=== PATIENT | female | born 1950 | race Caucasian/White ===

== ENCOUNTER → 2018-03-02 | Outpatient (CLI) | payer OTHER ==
[~2018-03-02] VITALS: Ht 162.6 cm; Wt 87.1 kg
[~2018-03-02] MED LIST: AMITRIPTYLINE H50 M2 PO; CEFDINIR300 MG PO; CELEBREX 200 M200 MG PO; ENOXAPARIN30 MG/0.3 SUBQ; ERGOCALCIF50000 UNIT PO; IRON325 PO; MIRALAX255 GM PO; MUCINEX600 MG PO; NASONEX17 GM SPRAY; NEXIUM 40 MG CA40 M1 PO; OXYCONTIN20 M1 PO; PERCOCET 5-3251 EACH PO; TOPROL XL25 MG PO; VERAMYST10 GM INH; VITAMIN D PO; ZESTORETIC 20-1 EAC3 PO; ZYRTEC10 M2 PO
--- NOTE | ~2018-03-02 | HPC ---
[address] [address] PAIN MANAGEMENT CONSULTATION Name: NATE INIGUEZ Room #: REG [facility].#: [id number] Admission: 03/02/18 Attend Phys: Ion Cox DO Discharge: Date of : 50 Report #: [id number] THIS REPORT FOR: //name// CC: Wyatt Maher MD DATE OF SERVICE: 03/02/2018 REFERRING PHYSICIAN: Jd Mhaer MD CHIEF COMPLAINT: Low back pain, left lower extremity pain with paresthesias. HISTORY OF PRESENT ILLNESS: As you know, the patient is a 68-year-old female who reports longstanding history of low back pain with left lower extremity pain and paresthesias. The patient states the pain began in 05/2017. She denies any specific injury or trauma that may have led to symptom occurrence. She sought evaluation through her primary care physician, Dr. Jd Maher, who had the patient trial conservative medication therapy. She underwent MRI imaging on 01/26/2018, which showed moderate endplate spurring at L3-L4, anterolisthesis of L4 on L5 with facet hypertrophy. A followup MRI imaging was done on 02/23/2018, which shows broad-based disk herniation extrusion at the L4-L5 level with leftward positioning of the disk protrusion with abutment of the descending left L5 nerve root. Due to these findings, the patient was subsequently referred to our service, discussed epidural injections under fluoroscopic guidance. The patient indicates today her pain is continuous and steady, describes the pain as aching, throbbing, sharp, intermittently numbness and tingling. She places current pain score at 7/10, daily average at 8/10, the worst pain has been is 8/10. The patient states that standing, lying on her back, sitting for any length of time and lifting exacerbates symptoms, sitting in a reclining chair tends to improve pain. She has been referred to our service to discuss treatment options for suspected lumbar radiculopathy. PAST MEDICAL HISTORY: 1. Anemia. 2. Hypertension. 3. Degenerative joint disease. 4. Osteoarthritis. 5. Tobaccoism. 6. GERD. PAST SURGICAL HISTORY: Total knee arthroplasty. SOCIAL HISTORY: The patient denies tobacco, alcohol, IV or illicit drug use. She is retired, retiring years ago. She is unaccompanied at today's visit. She [facility] [address] [place] [address] PAIN MANAGEMENT CONSULTATION Name: NATE INIGUEZ Room #: REG [facility] Lo#: [id number] Admission: 03/02/18 Attend Phys: Ion Cox DO Discharge: Date of : 50 Report #: [id number] is not in litigation in regards to her pain. REVIEW OF SYSTEMS: Positive for decrease in appetite, fatigue and weakness, frequent and recurrent headaches, wearing corrective eyewear, chronic sinus problems with rhinitis, palpitations, loss of appetite, nocturia, low back pain, left lower extremity pain and paresthesias. All other review of systems negative per 12-point review of systems other than those listed in the history of present illness. Pain impact score 38/70, indicating moderate interference of daily activities secondary to pain. ALLERGIES: ERYTHROMYCIN. CURRENT MEDICATIONS: Drisdol 50,000 units once a week, MiraLax 17 grams per day, metoprolol 25 mg 3 tabs p.o. at bedtime, lisinopril/hydrochlorothiazide 20/12.5 mg once a day, celecoxib 200 mg twice a day, amitriptyline 50 mg 2 tabs p.o. at bedtime, omeprazole 40 mg per day, OxyContin 20 mg 3 times a day, Zyrtec 10 mg once a day. IMAGING: MRI lumbar spine obtained 02/23/2018 shows broad-based disk herniation/extrusion present on the left at the L4-L5 level resulting in abutment of the descending left L5 nerve root as well as moderate left neural foraminal stenosis without definitive L4 nerve root impingement, mild central canal stenosis L2-L3, degenerative changes noted at multiple levels. There is a grade 1 anterolisthesis of L4 on L5. No significant central canal stenosis at that level. PQRS: The patient has a history of osteoarthritis and rheumatoid arthritis involving bilateral upper and lower extremities. She places pain intensity at 7/10. She is a fall risk, but has not had a fall in the last 3 months. She is not on blood thinners. She is treated for hypertension. She has been on opioids for an extended period of time. Functional assessment pain impact tool indicates 38/70, moderate. PHYSICAL EXAMINATION: VITAL SIGNS: Blood pressure 148/75, pulse 72, respiratory rate 16 and unlabored. The patient is 100% on room air. Height 5 feet 4 inches tall, weight 182 pounds, BMI calculated at 32.9. GENERAL: Well-developed, well-nourished, well-hydrated 68-year-old female, appears her stated age, placing current pain score at around 7/10. HEENT: Normocephalic, atraumatic. Pupils equal, round, reactive to light. Extraocular muscles are intact. Sclerae nonicteric without injection. NEUROLOGIC: Cranial nerves 2-12 grossly intact. Speech is fluent. The patient deemed a fair historian. LUNGS: Clear. No wheezes, rhonchi or rales. [address] [place] [address] PAIN MANAGEMENT CONSULTATION Name: NATE INIGUEZ [id number] Admission: 03/02/18 Attend Phys: Ion Cox DO Discharge: Date of : 50 Report #: [id number] CARDIOVASCULAR: Regular. No appreciable gallop, no rub. ABDOMEN: Soft, nontender, nondistended, normoactive bowel sounds. EXTREMITIES: Show no clubbing, no cyanosis, no edema. MUSCULOSKELETAL: Lower extremity strength appears equal and symmetrical 5/5. She is intact to light touch from L1 through S2 dermatomes. Seated straight leg raising negative. Supine straight leg raising positive on the left. Marci's test negative. Gait mildly antalgic favoring left lower extremity over right. Ankle clonus negative. Babinski is negative. Muscle bulk and tone equal and symmetrical in lower extremities. Lumbar provocation testing is met with increasing pain. There is palpatory tenderness over the paraspinal musculature of lower lumbar spine, no spinous process tenderness. ASSESSMENT: 1. Lumbar radiculopathy. 2. Displacement of lumbar intervertebral disk with radiculopathy. 3. Spinal stenosis of lumbar spine. 4. Lumbosacral spondylosis with radiculopathy. 5. Spondylolisthesis of L4 on L5. 6. Lumbar degeneration. 7. Chronic intractable pain. PLAN: 1. The patient has been referred to our service by her primary care physician, Dr. Jd Maher for evaluation for suspected lumbar radiculopathy. The patient's physical exam do correlate with findings noted at the L4-L5 level with L5 left radicular symptoms in a dermatomal pattern of distribution. The patient and I discussed today treatment options available for lumbar radiculopathy. The following was discussed with the patient for potential treatment options. We discussed physical therapy, stretching exercises and core strengthening, the most conservative treatment option available. We discussed medication additions with suggestions of starting either gabapentin or escalating the amitriptyline dosing to cover neuropathic pain. We discussed the requested epidural injection. We discussed spinal cord stimulator therapy and surgical options. After reviewing risks and benefits of all proposed treatment options, the patient chose to move forward with an epidural injection. 2. The patient was advised risks and benefits of a lumbar epidural injection. These risks include but are not necessarily limited to bleeding, bruising, infection, worsening pain, no relief of pain, also risk of temporary or permanent muscle weakness, temporary or permanent nerve damage, possible paralysis and . The patient states understood and wished to proceed. 3. No medication changes made at today's visit. The patient will continue current medical therapy as previously prescribed. 4. We will see the patient back in followup visit in approximately 3 weeks. At that time, review the efficacy of today's epidural injection and determine if next in the series might be warranted. [address] [address] PAIN MANAGEMENT CONSULTATION Name: INIGUEZNATE KAYE Room #: REG [facility] Lo#: [id number] Admission: 03/02/18 Attend Phys: Ion Cox DO Discharge: Date of : 50 Report #: [id number] 5. We wish to thank Dr. Maher for the referral of this patient to our clinic. We will keep you apprised of her response to treatment as we address her lumbar radicular symptoms. Again, we wish to thank you for the opportunity to see her in consultation. PROCEDURE NOTE DESCRIPTION OF PROCEDURE: L5-S1 left paramedian epidural steroid injection under fluoroscopic guidance. This is the first procedure of the first series that the patient is undergoing. After obtaining written consent, the patient was taken back to the fluoroscopy suite, placed in a prone position with pillow under the abdomen to decrease lumbar lordosis. The skin overlying the lumbosacral area was then prepped and draped in aseptic fashion. The L5-S1 vertebral interspace was then identified by AP fluoroscopy. The skin and subcutaneous tissue overlying the target site of injection was anesthetized with 3 mL 1% lidocaine. A(n) 20-gauge 3-1/2 inch Tuohy needle was then advanced under fluoroscopic guidance towards the epidural space using a left paramedian approach. The epidural space was identified using loss of resistance to air technique. After negative aspiration for heme or cerebrospinal fluid, a total of 1 mL of Omnipaque was injected. A lumbar epidurogram was confirmed using both AP and lateral fluoroscopy. After negative aspiration for heme or cerebrospinal fluid, 5 mL of a solution containing 2 mL 40 mg per mL, 80 mg total triamcinolone, 3 mL lidocaine 1% was injected in increments. Contrast spread was noted in the posterior epidural space. The needle was then retracted approximately half way and needle tract flushed with 1 mL of 1% lidocaine. Needle was then removed. There were no apparent sensory or motor deficits in the lower extremity following the procedure. A sterile bandage was placed over the injection site. The heart rate, pulse, oximetry and blood pressure were continuously monitored after the procedure. There were no apparent complications. The patient tolerated the procedure well and was carefully escorted to the recovery room in stable condition. There were no apparent complications. After meeting discharge criteria, the patient was then discharged home. <ELECTRONICALLY SIGNED> By: Ion Cox DO 03/03/18 [id number] Ion oCx DO /juan
[2018-03-02 08:35] VITALS: BP 148/75
== END | disposition home or self-care (01) ==
LOC: PAIN 06:50
DX: M51.16 Intervertebral disc disorders with radiculopathy, lumbar region (principal); M48.061 Spinal stenosis, lumbar region without neurogenic claudication; M47.27 Other spondylosis with radiculopathy, lumbosacral region; M43.16 Spondylolisthesis, lumbar region; G89.29 Other chronic pain; D64.9 Anemia, unspecified; I10 Essential (primary) hypertension; M19.90 Unspecified osteoarthritis, unspecified site; K21.9 Gastro-esophageal reflux disease without esophagitis; F17.200 Nicotine dependence, unspecified, uncomplicated; M99.73 Connective tissue and disc stenosis of intervertebral foramina of lumbar region; M06.9 Rheumatoid arthritis, unspecified; Z98.890 Other specified postprocedural states; Z96.652 Presence of left artificial knee joint; Z88.8 Allergy status to other drugs, medicaments and biological substances; Z79.899 Other long term (current) drug therapy; Z79.891 Long term (current) use of opiate analgesic; Z68.32 Body mass index [BMI] 32.0-32.9, adult

== ENCOUNTER → 2018-03-31 | Outpatient (CLI) | payer OTHER ==
[~2018-03-31] VITALS: Ht 162.6 cm; Wt 88.2 kg
--- NOTE | ~2018-03-31 | HPC ---
[place] [address] PAIN MANAGEMENT CONSULTATION Name: NATE INIGUEZ Room #: REG [facility] Maria Fernanda.#: [id number] Admission: 03/31/18 Attend Phys: Ion Cox DO Discharge: Date of : 50 Report #: [id number] THIS REPORT FOR: //name// CC: Wyatt Maher MD DATE OF SERVICE: 03/31/2018 CHIEF COMPLAINT: Low back pain, left lower extremity pain and paresthesias. HISTORY OF PRESENT ILLNESS: As you know, the patient is a 68-year-old female reporting longstanding history of low back pain, left lower extremity pain with paresthesias. The patient states the pain began 05/2017. She was seen in consultation per the request of Dr. Jd Maher, 03/02/2018, diagnosed with lumbar radiculopathy secondary to multifactorial spinal stenosis. We discussed at that visit, the treatment options available for lumbar radiculopathy secondary to central canal stenosis of the lumbar spine. We discussed medication management, physical therapy, epidural injections, and surgical options. After reviewing the risks and benefits of all the proposed treatment options, the patient chose to undergo a lumbar epidural injection under fluoroscopic guidance. She returns today in followup visit indicating a pain level of no greater than 7/10. She reports that she gained 80% improvement in overall pain with the initial epidural injection despite this elevated pain report today. She returns to undergo next in the series of epidural injections. She states her pain is exacerbated with standing, lying down, sitting, lifting, worse as the day wears on, alleviated with recliner, wedge pillow and recent epidural injection. She returns for the second in series of epidural injections in hopes of improving pain further. ALLERGIES: ERYTHROMYCIN. CURRENT MEDICATIONS: Drisdol once a week, MiraLax 17 grams per day, metoprolol 25 mg 3 tabs p.o. q.a.m., lisinopril/hydrochlorothiazide 20/12.5 one tab per day, celecoxib 200 mg twice a day, amitriptyline 50 mg p.o. at bedtime, omeprazole 40 mg per day, OxyContin 20 mg b.i.d., Zyrtec 10 mg once a day. SOCIAL HISTORY: The patient denies tobacco, alcohol, IV or illicit drug use. She is retired, retired years ago. She is unaccompanied today. IMAGING: No new imaging available. PQRS: The patient has known osteoarthritis of the low back, bilateral hips, bilateral knees. She also has a history of rheumatoid arthritis involving both upper and lower extremities. Pain intensity today is 7/10. She is not a fall risk, has not had a fall in the last 3 months. She [place] [address] PAIN MANAGEMENT CONSULTATION Name: NATE INIGUEZ Room #: REG CL Teresita#: [id number] Admission: 03/31/18 Attend Phys: Ion Cox DO Discharge: Date of : 50 Report #: [id number] She is treated for hypertension. She has been on opioids for an extended period of time. Functional assessment pain impact stool indicates pain level somewhere up to 38/70, moderate interference of daily activities secondary to pain. PHYSICAL EXAMINATION: VITAL SIGNS: Blood pressure 134/64, pulse 82, respiratory rate 16 and unlabored. The patient is 100% on room air. Height 5 feet 4 inches tall, weight 194.4 pounds, BMI calculated 33.4. GENERAL: Well-developed, well-nourished, well-hydrated 68-year-old female, appearing stated age, placing current pain score 7/10. HEENT: Normocephalic, atraumatic. Pupils equal, round, reactive to light. EXTREMITIES: Show no clubbing, no cyanosis, no edema. MUSCULOSKELETAL: Lower extremity strength symmetrical 5/5, intact to light touch from L1 through S2 dermatomes. Seated straight leg raising negative. Supine straight leg raising positive, left. Marci's test negative. Gait remains antalgic favoring left lower extremity over right. The patient is using a cane for ambulation. ASSESSMENT: 1. Lumbar radiculopathy. 2. Displacement of lumbar intervertebral disk with radiculopathy. 3. Central canal stenosis of the lumbar spine. 4. Lumbosacral spondylosis with radiculopathy. 5. Spondylosis of L4 and L5. 6. Lumbar degeneration. 7. Chronic intractable pain. PLAN: 1. The patient returns today in followup visit requesting to undergo next in the series of epidural injections. She reports 80% improvement in overall pain with previous epidural injection, returning today, denying any new injury, new trauma or any changes in medical history that would preclude us from undergoing the procedure. She has been advised risks and benefits, states understood and wished to proceed. 2. No medication changes were made at today's visit. The patient will continue current medical therapy as previously prescribed. 3. We will see the patient back in followup visit for next in the series of epidural injections. We made her a tentative appointment in 2 months. PROCEDURE NOTE DESCRIPTION OF PROCEDURE: L5-S1 left paramedian epidural steroid injection under fluoroscopic guidance. This is the 2 procedure of the first series that the patient is undergoing. [address] [address] PAIN MANAGEMENT CONSULTATION Name: NATE INIGUEZ Room #: REG [facility]#: [id number] Admission: 03/31/18 Attend Phys: Ion Cox DO Discharge: Date of : 50 Report #: [id number] After obtaining written consent, the patient was taken back to the fluoroscopy suite, placed in a prone position with pillow under the abdomen to decrease lumbar lordosis. The skin overlying the lumbosacral area was then prepped and draped in aseptic fashion. The L5-S1 vertebral interspace was then identified by AP fluoroscopy. The skin and subcutaneous tissue overlying the target site of injection was anesthetized with 3 mL 1% lidocaine. A 20-gauge 3-1/2 inch Tuohy needle was then advanced under fluoroscopic guidance towards the epidural space using a left paramedian approach. The epidural space was identified using loss of resistance to air technique. After negative aspiration for heme or cerebrospinal fluid, a total of 1 mL of Omnipaque was injected. A lumbar epidurogram was confirmed using both AP and lateral fluoroscopy. After negative aspiration for heme or cerebrospinal fluid, 5 mL of solution of containing 2 mL 40 mg per mL 80 mg total triamcinolone, 3 mL lidocaine 1% was injected in increments. Contrast spread was noted posterior epidural space. The needle was then retracted approximately half way and needle tract flushed with 1 mL of 1% lidocaine. Needle was then removed. There were no apparent sensory or motor deficits in the lower extremity following the procedure. A sterile bandage was placed over the injection site. The heart rate, pulse, oximetry and blood pressure were continuously monitored after the procedure. There were no apparent complications. The patient tolerated the procedure well and was carefully escorted to the recovery room in stable condition. There were no apparent complications. After meeting discharge criteria, the patient was then discharged home. <ELECTRONICALLY SIGNED> By: Ion Cox DO 04/02/18 0753 [id number] 1835 Ion Cox DO /nt
[2018-03-31 09:00] VITALS: BP 134/64
== END | disposition home or self-care (01) ==
LOC: PAIN 06:42
DX: M51.16 Intervertebral disc disorders with radiculopathy, lumbar region (principal); M48.061 Spinal stenosis, lumbar region without neurogenic claudication; M47.27 Other spondylosis with radiculopathy, lumbosacral region; M47.26 Other spondylosis with radiculopathy, lumbar region; G89.29 Other chronic pain; I10 Essential (primary) hypertension; M19.90 Unspecified osteoarthritis, unspecified site; Z88.0 Allergy status to penicillin; Z79.899 Other long term (current) drug therapy; Z87.891 Personal history of nicotine dependence; Z98.890 Other specified postprocedural states

== ENCOUNTER → 2018-07-14 | Outpatient (CLI) | payer OTHER ==
[~2018-07-14] VITALS: Ht 165.1 cm; Wt 88.2 kg
[2018-07-14 09:02] VITALS: BP 127/70
--- NOTE | 2018-07-14 09:30 | NUR ---
Pain Clinic Assessment: 1. History of Osteoarthritis: Left Lower Extremity Right Lower Extremity History of Rheumatoid Arthritis: Left Lower Extremity Right Lower Extremity Left Upper Extremity Right Upper Extremity 2. Height: 5 ft. 5 in. 165.1 cm. Weight: 194.4 lb. oz. 88.179 kg. Patient's BMI: 32.3 3. Vital Signs: BP: 127/70 Pulse: 73 Resp: 18 Temp: 02 Sat: 100 ECG Mon: 4. Pain Intensity: 6 NECK BACK 10 5. Fall Risk: Dizziness: N Needs help standing or walking: Y Fallen in the last 3 months: N Fall risk comments: 6. Patient on Blood Thinner: None 7. History of Hypertension: Y 8. Opioid Therapy greater than 6 weeks: Y Opiate Contract Signed: 9. Risk Assessment Tool Provided: DR GILLIS 10. Functional Assessment Tool: 11. Recreational Drug Use: Never Drug Type: Tobacco Use: Former Smoker Tobacco Type: Amount or Packs/day: How Many Years: Alcohol Use: Past use Frequency: Quant:
--- NOTE | 2018-07-27 07:31 | HPC ---
[facility] [address] [place] [address] PAIN MANAGEMENT CONSULTATION Name: NATE INIGUEZ Room #: REG [facility] M..#: [id number] Admission: 07/14/18 ������������������ Attend Phys: Ion Cox DO Discharge: ������������������ Date of : 50 Report #: [id number] THIS REPORT FOR: //name// CC: Wyatt Cox ESVIN BOX DATE OF SERVICE: 07/14/2018 CHIEF COMPLAINT: Low back pain, left lower extremity pain with paresthesias. HISTORY OF PRESENT ILLNESS: As you know, the patient is a 68-year-old female returning in followup visit now reporting pain score of around 6/10. She is complaining of back pain at 10/10 and neck pain at 6/10. She has been evaluated by her PCP and referred back to our clinic for suspected cervical radiculopathy. She is also experiencing axial back pain and lower extremity pain with paresthesias, mainly on the left side. She returns to discuss options for treatment. ALLERGIES: ERYTHROMYCIN. CURRENT MEDICATIONS: Drisdol, MiraLax, metoprolol, lisinopril/hydrochlorothiazide, celecoxib, Zyrtec, oxycodone, omeprazole, amitriptyline. SOCIAL HISTORY: The patient denies tobacco, alcohol, IV or illicit drug use. She is retired, retired years ago. She is unaccompanied today. IMAGING: There is no new imaging available. PQRS, the patient has known osteoarthritic changes of the cervical spine, lumbar spine, bilateral hips and bilateral knees. She also has a history of rheumatoid arthritis involving upper and lower extremities. She is placing pain intensity today at 6/10 in the neck and 10/10 in the back. She is not a fall risk and has not had a fall in the last 3 months. She is not on any blood thinners. She is treated for hypertension. She has been on opiates for an extended period of time. She is receiving opioids from Dr. Maher's office. She is placing pain impact score at 30/70 indicating moderate interference of daily activities secondary to pain. PHYSICAL EXAMINATION: VITAL SIGNS: Blood pressure 127/70, pulse is 73, respiratory rate 18 and unlabored. The patient is 100% on room air. Height 5 feet 5 inches tall, weight 194.4 pounds, BMI calculated at 32.3. GENERAL: Well-developed, well-nourished, well-hydrated 68-year-old female, appearing stated age, placing current pain score at 6/10 in the neck and 10/10 [place] [address] PAIN MANAGEMENT CONSULTATION Name: NAET INIGUEZ Room #: REG [facility].#: [id number] Admission: 07/14/18 ������������������ Attend Phys: Ion Cox DO Discharge: ������������������ Date of : 50 Report #: [id number] in low back and left lower extremity. HEENT: Normocephalic, atraumatic. Pupils equal, round, reactive to light. Extraocular muscles are intact. Sclerae nonicteric without injection. EXTREMITIES: Show no clubbing, no cyanosis, no edema. MUSCULOSKELETAL: Upper extremity strength appears symmetrical, but deconditioned bilaterally, 5/5, intact to light touch from C5 through T1 dermatomes. Positive Phalen's sign is noted, equivocal Tinel's sign. Spurling's test is negative. Cervical provocation testing is met with increasing pain. Lower extremity strength is 5/5, intact to light touch from L1 through S2 dermatomes. Seated straight leg raising negative. Supine straight leg raising positive on the left. Gait mildly antalgic favoring left lower extremity. ASSESSMENT: 1. Cervical spondylosis without radiculopathy. 2. Chronic cervicalgia. 3. Bilateral carpal tunnel syndrome. 4. Lumbar radiculopathy. 5. Displacement of lumbar intervertebral disk with radiculopathy. 6. Lumbosacral spondylosis with radiculopathy. 7. Spondylosis of L4 on L5. 8. Central canal stenosis of the lumbar spine. 9. Lumbar degeneration. 10. Chronic intractable pain. PLAN: 1. The patient has returned today in followup visit reporting pain score in the cervical region, 6/10. Based on today's physical exam and the history she provides and the lack of any radicular symptoms involving the upper extremity except for area distal to the median nerve with involvement of classic carpal tunnel syndrome bilaterally, there is noted no cervical radiculopathy. She does have some cervical spondylosis secondary to arthritic changes in the cervical spine, which could be contributing to her neck pain, but certainly, it is not causing any radicular component based on neural tensioning testing today. The positive Phalen's sign and the equivocal Tinel's sign would indicate recurrence of carpal tunnel syndrome for which the patient should be evaluated further for possible surgical option. She has had release in the past, but this was some time ago. It is not unusual to have recurrence of these symptoms in those individuals that required releases in the distant past. I have advised the patient that if she wishes, we could have her undergo EMG of the upper extremities to further evaluate where she can follow up with her orthopedic surgeon in regards to possible repeated carpal tunnel release. 2. The patient and I discussed the 10/10 pain she is experiencing in low back and left lower extremity. She has requested today to undergo a lumbar epidural injection under fluoroscopic guidance. We have agreed to provide this injection today to address her 10/10 pain. She has been advised the risks and benefits, [facility] [address] [place] [address] PAIN MANAGEMENT CONSULTATION Name: NATE INIGUEZ Room #: REG [facility].#: [id number] Admission: 07/14/18 ������������������ Attend Phys: Ion Cox DO Discharge: ������������������ Date of : 50 Report #: [id number] states understood and wished to proceed. 3. No medication changes made at today's visit. The patient will continue current medical therapy as previously prescribed. 4. We will see the patient back in followup visit on an as needed basis for the next in the series of lumbar epidural injections under fluoroscopic guidance. PROCEDURE NOTE DESCRIPTION OF PROCEDURE: L5-S1 left paramedian epidural steroid injection under fluoroscopic guidance. This is the third procedure of the first series that the patient is undergoing. After obtaining written consent, the patient was taken back to the fluoroscopy suite, placed in a prone position with pillow under the abdomen to decrease lumbar lordosis. The skin overlying the lumbosacral area was then prepped and draped in aseptic fashion. The L5-S1 vertebral interspace was then identified by AP fluoroscopy. The skin and subcutaneous tissue overlying the target site of injection was anesthetized with 3 mL 1% lidocaine. A 20-gauge 3-1/2 inch Tuohy needle was then advanced under fluoroscopic guidance towards the epidural space using a left paramedian approach. The epidural space was identified using loss of resistance to air technique. After negative aspiration for heme or cerebrospinal fluid, a total of 0.7 mL of Omnipaque was injected. A lumbar epidurogram was confirmed using both AP and lateral fluoroscopy. After negative aspiration for heme or cerebrospinal fluid, 5 mL of a solution containing 2 mL 40 mg per mL, 80 mg total triamcinolone, 3 mL lidocaine 1% was injected in increments. Contrast spread was noted in posterior epidural space. The needle was then retracted approximately half way and needle tract flushed with 1 mL of 1% lidocaine. Needle was then removed. There were no apparent sensory or motor deficits in the lower extremity following the procedure. A sterile bandage was placed over the injection site. The heart rate, pulse, oximetry and blood pressure were continuously monitored after the procedure. There were no apparent complications. The patient tolerated the procedure well and was carefully escorted to the recovery room in stable condition. There were no apparent complications. After meeting discharge criteria, the patient was then discharged home. ��������������������������������������������� <ELECTRONICALLY SIGNED> ���������������������������������������� By: Ion Cox DO ��������������������������������������������� 07/27/18 0731 [id number] 1919 Ion Cox DO /nt
== END | disposition home or self-care (01) ==
LOC: PAIN 04-28 05:47
DX: M51.16 Intervertebral disc disorders with radiculopathy, lumbar region (principal); M47.27 Other spondylosis with radiculopathy, lumbosacral region; M48.061 Spinal stenosis, lumbar region without neurogenic claudication; G89.29 Other chronic pain; M47.26 Other spondylosis with radiculopathy, lumbar region; M47.812 Spondylosis without myelopathy or radiculopathy, cervical region; M54.2 Cervicalgia; G56.03 Carpal tunnel syndrome, bilateral upper limbs; Z87.891 Personal history of nicotine dependence; Z98.890 Other specified postprocedural states; Z88.8 Allergy status to other drugs, medicaments and biological substances; Z79.899 Other long term (current) drug therapy

== ENCOUNTER → 2018-10-13 | Outpatient (CLI) | payer OTHER ==
[~2018-10-13] VITALS: Ht 165.1 cm; Wt 87.5 kg
[2018-10-13 11:04] VITALS: BP 145/76
--- NOTE | 2018-10-13 11:10 | NUR ---
Pain Clinic Assessment: 1. History of Osteoarthritis: Left Lower Extremity Right Lower Extremity History of Rheumatoid Arthritis: Left Lower Extremity Right Lower Extremity Left Upper Extremity Right Upper Extremity 2. Height: 5 ft. 5 in. 165.1 cm. Weight: 192.8 lb. oz. 87.454 kg. Patient's BMI: 32.1 3. Vital Signs: BP: 145/76 Pulse: 84 Resp: 16 Temp: 02 Sat: 100 ECG Mon: 4. Pain Intensity: 9 5. Fall Risk: Dizziness: N Needs help standing or walking: Y Fallen in the last 3 months: Y Fall risk comments: 6. Patient on Blood Thinner: None 7. History of Hypertension: Y 8. Opioid Therapy greater than 6 weeks: Y Opiate Contract Signed: 9. Risk Assessment Tool Provided: DR GILLIS 10. Functional Assessment Tool: 11. Recreational Drug Use: Never Drug Type: Tobacco Use: Former Smoker Tobacco Type: Amount or Packs/day: How Many Years: Alcohol Use: Past use Frequency: Quant:
--- NOTE | 2018-10-20 09:24 | HPC ---
[facility] [place] [address] PAIN MANAGEMENT CONSULTATION Name: NATE INIGUEZ [id number] Admission: 10/13/18 ������������������ Attend Phys: Ion Cox DO Discharge: ������������������ Date of : 50 Report #: [id number] THIS REPORT FOR: //name// CC: Wyatt Maher MD DATE OF SERVICE: 10/13/2018 REFERRING PHYSICIAN: Jd Maher M.D. CHIEF COMPLAINT: Low back pain, left lower extremity pain with paresthesias. HISTORY OF PRESENT ILLNESS: As you know, the patient is a 68-year-old female who returns today in followup visit indicating pain level of 9/10. She states pain begins in low back, radiates down the leg on the left. She indicates standing, lying down, sitting and lifting exacerbates the pain. A recliner, wedge pillows and epidural injection has been beneficial at providing improvement in symptoms. She indicates 75% improvement in overall pain with previous lumbar epidural injection provided on 07/14/2018. She returns today in followup visit, denying any new injury or trauma that may have led to symptom recurrence. ALLERGIES: ERYTHROMYCIN. CURRENT MEDICATIONS: Vitamin D, MiraLax, metoprolol, cetirizine, oxycodone, omeprazole, amitriptyline, celecoxib, lisinopril and hydrochlorothiazide. SOCIAL HISTORY: The patient denies tobacco, alcohol, IV or illicit drug use. She is retired, retired years ago, unaccompanied today. IMAGING: No new imaging available. PQRS: The patient has known cervical osteoarthritis, lumbar osteoarthritis, bilateral hip arthritis and bilateral knee osteoarthritis. She does have a history of rheumatoid arthritis involving upper and lower extremities. She is placing pain intensity today at 9/10. She is a fall risk and has had multiple falls in the past 3 months. She is utilizing ambulatory devices for balance and stability. She is not on blood thinners, treated for hypertension. She is on chronic opioids being provided by Dr. Maher. Functional pain impact score 38/70, moderate interference with daily activities secondary to pain. PHYSICAL EXAMINATION: VITAL SIGNS: Blood pressure 145/76, pulse 84, respiratory rate 16 and unlabored. The patient is 100% on room air. Height 5 feet 5 inches tall, weight 192.8 pounds and BMI calculated 32.1. [address] [address] PAIN MANAGEMENT CONSULTATION Name: NATE INIGUEZ Room #: REG [facility] Teresita#: [id number] Admission: 10/13/18 ������������������ Attend Phys: Ion Cox DO Discharge: ������������������ Date of : 50 Report #: [id number] GENERAL: Well-developed, well-nourished, well-hydrated and exogenously obese 68-year-old female, appearing stated age. Pain is rated at 9/10. HEENT: Normocephalic, atraumatic. Pupils equal, round and reactive to light. Speech remains fluent. EXTREMITIES: Show no clubbing, no cyanosis and no edema. MUSCULOSKELETAL: Lower extremity strength appears equal and symmetrical at 5/5, intact to light touch from L1 through S2 dermatomes. Seated straight leg raising negative. Supine straight leg raising positive on the left. Marci's test is negative. Gait mildly antalgic, favoring the left lower extremity over right. Muscle bulk and tone is symmetrical on comparing left lower extremity to right. ASSESSMENT: 1. Symptomatic lumbar radiculopathy. 2. Lumbosacral spondylosis of L4 on L5. 3. Central canal stenosis of the lumbar spine. 4. Lumbar degeneration. 5. Chronic intractable pain. PLAN: 1. The patient has returned today in followup visit, having noted excellent benefit with previous epidural injection, noting 75% improvement in overall pain with the procedure performed on 07/14/2018. She returns today to undergo next in the series of epidural injections. The patient and I had a very long discussion about the risks and benefits of the procedure. These risks include but are not necessarily limited to bleeding, bruising, infection, worsening pain, no relief of pain, also risk of temporary or permanent muscle weakness, temporary or permanent nerve damage, possible paralysis, post-dural puncture headache and . The patient states she understood and wished to proceed. 2. No medication changes made at today's visit. The patient will continue current medical therapy as previously prescribed. 3. We will see the patient back in followup visit on an as-needed basis for possible next in the series of lumbar epidural injections. PROCEDURE NOTE PROCEDURE: L5-S1 left paramedian epidural steroid injection under fluoroscopic guidance. This is the first procedure of the second series that the patient is undergoing. After obtaining written consent, the patient was taken back to the fluoroscopy suite, placed in a prone position with pillow under the abdomen to decrease lumbar lordosis. The skin overlying the lumbosacral area was then prepped and draped in aseptic fashion. The L5-S1 vertebral interspace was then identified [address] [address] PAIN MANAGEMENT CONSULTATION Name: NATE INIGUEZ Room #: REG [facility] Maria Fernanda#: [id number] Admission: 10/13/18 ������������������ Attend Phys: Ion Cox DO Discharge: ������������������ Date of : 50 Report #: [id number] by AP fluoroscopy. The skin and subcutaneous tissue overlying the target site of injection was anesthetized with 3 mL 1% lidocaine. A 20-guage 3-1/2 inch Tuohy needle was then advanced under fluoroscopic guidance towards the epidural space using a left paramedian approach. The epidural space was identified using loss of resistance to air technique. After negative aspiration for heme or cerebrospinal fluid, a total of 1 mL of Omnipaque was injected. A lumbar epidurogram was confirmed using both AP and lateral fluoroscopy. After negative aspiration for heme or cerebrospinal fluid, 5 mL of a solution containing 2 mL of 40 mg per mL 80 mg total of triamcinolone and 3 mL of lidocaine 1% was injected in increments. Contrast spread was noted in the posterior epidural space. The needle was then retracted approximately half way and needle tract flushed with 1 mL of lidocaine. Needle was then removed. There were no apparent sensory or motor deficits in the lower extremity following the procedure. A sterile bandage was placed over the injection site. The heart rate, pulse, oximetry and blood pressure were continuously monitored after the procedure. There were no apparent complications. The patient tolerated the procedure well and was carefully escorted to the recovery room in stable condition. There were no apparent complications. After meeting discharge criteria, the patient was then discharged home. ��������������������������������������������� <ELECTRONICALLY SIGNED> ���������������������������������������� By: Ion Cox DO ��������������������������������������������� 10/20/18 0924 0843 1114 Ion Cox, DO /nt
== END | disposition home or self-care (01) ==
LOC: PAIN 09-28 06:56
DX: M51.16 Intervertebral disc disorders with radiculopathy, lumbar region (principal); M47.26 Other spondylosis with radiculopathy, lumbar region; M48.061 Spinal stenosis, lumbar region without neurogenic claudication; G89.29 Other chronic pain; M17.0 Bilateral primary osteoarthritis of knee; M16.0 Bilateral primary osteoarthritis of hip; M06.9 Rheumatoid arthritis, unspecified; I10 Essential (primary) hypertension; Z79.899 Other long term (current) drug therapy; Z79.891 Long term (current) use of opiate analgesic; Z88.8 Allergy status to other drugs, medicaments and biological substances; Z98.890 Other specified postprocedural states

== ENCOUNTER → 2019-01-25 | Outpatient (CLI) | payer OTHER ==
[~2019-01-25] VITALS: Ht 165.1 cm; Wt 87.5 kg
[2019-01-25 10:21] VITALS: BP 135/67
--- NOTE | 2019-01-25 10:39 | NUR ---
Pain Clinic Assessment: 1. History of Osteoarthritis: Left Lower Extremity Right Lower Extremity History of Rheumatoid Arthritis: Left Lower Extremity Right Lower Extremity Left Upper Extremity Right Upper Extremity 2. Height: 5 ft. 5 in. 165.1 cm. Weight: 192.8 lb. oz. 87.454 kg. Patient's BMI: 32.1 3. Vital Signs: BP: 135/67 Pulse: 85 Resp: 16 Temp: 02 Sat: 100 ECG Mon: 4. Pain Intensity: 7 5. Fall Risk: Dizziness: N Needs help standing or walking: Y Fallen in the last 3 months: N Fall risk comments: 6. Patient on Blood Thinner: None 7. History of Hypertension: Y 8. Opioid Therapy greater than 6 weeks: Y Opiate Contract Signed: 9. Risk Assessment Tool Provided: DR GILLIS 10. Functional Assessment Tool: 11. Recreational Drug Use: Never Drug Type: Tobacco Use: Former Smoker Tobacco Type: Amount or Packs/day: How Many Years: Alcohol Use: Past use Frequency: Quant:
--- NOTE | 2019-02-01 11:15 | HPC ---
[facility] [address] [place] [address] PAIN MANAGEMENT CONSULTATION Name: NATE INIGUEZ Room #: REG [facility] M..#: [id number] Admission: 01/25/19 Attend Phys: Ion Cox DO Discharge: Date of : 50 Report #: [id number] THIS REPORT FOR: //name// CC: Wyatt Maher MD DATE OF SERVICE: 01/25/2019 CHIEF COMPLAINT: Low back pain, left lower extremity pain and paresthesias. HISTORY OF PRESENT ILLNESS: As you know, the patient is a 69-year-old female who returns today in followup visit reporting pain score of around 7/10. As you are aware, we are treating the patient for lumbar radiculopathy secondary to central canal stenosis. She has undergone epidural injections with good effect. The most recent epidural injection gave 75% improvement, lasting for nearly 3 months apart. She returns today in followup visit requesting to undergo next in the series of epidural injections. She denies any new injury or trauma. She describes the pain as aching, sharp, soreness, tenderness, numbness and tingling, places current pain score 7/10. Standing, lying down, sitting, lifting and walking exacerbate symptoms. Medications and epidural injections tend to improve pain. She has returned today in followup visit to undergo next in the series of lumbar epidural injections to address lumbar radicular symptoms. ALLERGIES: ERYTHROMYCIN. CURRENT MEDICATIONS: Ergocalciferol 50,000 units per week, MiraLax 255 grams powder per day, metoprolol 25 mg per day, lisinopril/hydrochlorothiazide 20/12.5 mg once a day, celecoxib 200 mg once a day, amitriptyline 100 mg p.o. at bedtime, omeprazole 40 mg per day, cetirizine 10 mg per day, oxycodone 20 mg t.i.d. SOCIAL HISTORY: The patient denies tobacco, alcohol, IV or illicit drug use. She is retired, retired years ago, unaccompanied today. IMAGING: No new imaging available. PQRS: The patient has known cervical osteoarthritis, lumbar osteoarthritis, bilateral hip arthritis and bilateral knee osteoarthritis. She does have a history of rheumatoid arthritis involving the bilateral upper and lower extremities. Pain intensity today is reported 12/08. She is a fall risk, but has not had a fall in the last 3 months. She does have a cane for balance and ambulation. She is not on blood thinners. She is treated for hypertension. She is on chronic opioids, receiving his medications through Dr. Maher. Pain impact 38/70, moderate interference of daily activities secondary to pain. [address] [address] PAIN MANAGEMENT CONSULTATION Name: NATE INIGUEZ KAYE Room #: REG [facility].#: [id number] Admission: 01/25/19 Attend Phys: Ion Cox DO Discharge: Date of : 50 Report #: [id number] PHYSICAL EXAMINATION: VITAL SIGNS: Blood pressure 135/67, pulse 85, respiratory rate 16 and unlabored. The patient is 100% on room air. Height 5 feet 5 inches tall, weight 192.8 pounds and BMI calculated 32.1. GENERAL: Well-developed, well-nourished, well-hydrated, exogenously obese 69-year-old female, appearing stated age, pain is rated today at 7/10. HEENT: Normocephalic, atraumatic. Pupils equal, round, reactive to light. EXTREMITIES: Show no clubbing, no cyanosis, and no edema. MUSCULOSKELETAL: Lower extremity strength is symmetrical 5/5. Seated straight leg raising negative. Supine straight leg raising positive on the left. Marci test negative. Gait remains mildly antalgic, favoring left lower extremity. Muscle bulk and tone is symmetrical in comparing lower extremities. ASSESSMENT: 1. Symptomatic lumbar radiculopathy. 2. Lumbar central canal stenosis. 3. Lumbosacral spondylosis with radiculopathy. 4. Lumbar degeneration. 5. Chronic intractable pain. PLAN: 1. The patient returns today in followup visit requesting to undergo next in the series of lumbar epidural injections under fluoroscopic guidance. She reports 75% improvement in overall pain, lasting for nearly 3 months with this previous injection. She returns today without inciting injury or trauma with pain level 7/10 to undergo next in the series. She has been advised of risks and benefits of procedure, states she understood and wished to proceed. 2. No medication changes made at today's visit. The patient will continue current medical therapy as previously prescribed. 3. We will see the patient back in followup visit on an as needed basis for possible next in the series of epidural injections. PROCEDURE NOTE DESCRIPTION OF PROCEDURE: L5-S1 left paramedian epidural steroid injection under fluoroscopic guidance. This is the second procedure of the second series that the patient is undergoing. After obtaining written consent, the patient was taken back to the fluoroscopy suite, placed in a prone position with pillow under the abdomen to decrease lumbar lordosis. The skin overlying the lumbosacral area was then prepped and draped in aseptic fashion. The L5-S1 vertebral interspace was then identified by AP fluoroscopy. The skin and subcutaneous tissue overlying the target site of injection was anesthetized with 3 mL 1% lidocaine. [address] [address] PAIN MANAGEMENT CONSULTATION Name: NATE INIGUEZ Room #: REG [facility]#: [id number] Admission: 01/25/19 Attend Phys: Ion Cox DO Discharge: Date of : 50 Report #: [id number] A 20 gauge 3.5 inch Tuohy needle was then advanced under fluoroscopic guidance towards the epidural space using a left paramedian approach. The epidural space was identified using loss of resistance to air technique. After negative aspiration for heme or cerebrospinal fluid, a total of 1 mL of Omnipaque was injected. A lumbar epidurogram was confirmed using both AP and lateral fluoroscopy. After negative aspiration for heme or cerebrospinal fluid, 5 mL of a solution containing 2 mL 40 mg per mL, 80 mg total triamcinolone along with 3 mL lidocaine 1% was injected in increments. Contrast spread was noted in posterior epidural space. The needle was then retracted approximately half way and needle tract flushed with 1 mL of 1% lidocaine. Needle was then removed. There were no apparent sensory or motor deficits in the lower extremity following the procedure. A sterile bandage was placed over the injection site. The heart rate, pulse, oximetry and blood pressure were continuously monitored after the procedure. There were no complications. The patient tolerated the procedure well and was carefully escorted to the recovery room in stable condition. There were no apparent complications. After meeting discharge criteria, the patient was then discharged home. <ELECTRONICALLY SIGNED> By: Ion Cox DO 02/01/19 1115 1032 2048 Ion Cox DO /juan
== END | disposition home or self-care (01) ==
LOC: PAIN 01-18 06:46
DX: M51.16 Intervertebral disc disorders with radiculopathy, lumbar region (principal); M47.27 Other spondylosis with radiculopathy, lumbosacral region; G89.29 Other chronic pain; M48.061 Spinal stenosis, lumbar region without neurogenic claudication; M47.26 Other spondylosis with radiculopathy, lumbar region; E66.9 Obesity, unspecified; Z88.8 Allergy status to other drugs, medicaments and biological substances; Z79.899 Other long term (current) drug therapy; Z68.32 Body mass index [BMI] 32.0-32.9, adult

== ENCOUNTER → 2019-08-03 | Outpatient (CLI) | payer OTHER ==
[~2019-08-03] VITALS: Ht 162.6 cm; Wt 83.9 kg
[~2019-08-03] MED LIST changes: -ERGOCALCIF50000 UNIT PO; +MECLIZINE HCL25 M1 PO; +MIRALAX17 G1 PO; -MIRALAX255 GM PO; +VITAMIN D22000 UNIT PO
--- NOTE | 2019-08-04 16:07 | PATH ---
[facility] [place] [address] PATHOLOGY RPT PROCEDURE Name: ALE INIGUEZ Room #: REG [facility] M.R.#: [id number] Admission: 08/03/19 Date of : 50 Discharge: Report #: [id number] Path Case #: [id number] L[facility] Accession Number: [id number] . 01 Material submitted: . PART A: duodenum - BX DUODENUM PART B: stomach - BX GASTRITIS . 01 Clinical history: . Vomiting, weight loss, hiccups A. R/O sprue B. R/O H. pylori . 02 Diagnosis: A. Small bowel mucosa, duodenum R/O sprue, endoscopic biopsy: - Focal chronic duodenitis associated with fundic-type metaplasia, compatible with focal peptic duodenitis. - Negative for villous blunting or increase in intraepithelial lymphocytes. . B. Gastric mucosa, gastritis R/O H. pylori, endoscopic biopsy: - Mild to moderate reactive gastropathy. - One fragment showing dilated fundic glands, compatible with fundic gland polyp. - Negative for intestinal metaplasia or atrophy. - Negative for Helicobacter pylori (properly controlled immunohistochemical stain performed). (IUV:obie; 08/04/2019) QMS 08/04/2019 1242 Local . 02 Electronically signed: . Radha Gomez MD, Pathologist NPI- [id number] . 01 Gross description: . A. The specimen is received in formalin, labeled "Ale Iniguez, biopsy duodenum, R/O sprue". Received are two segments of pale soto soft tissue ranging in size from 0.4 to 0.5 cm in maximum dimensions. The specimen is submitted entirely in cassette A1. . B. The specimen is received in formalin, labeled "Ale Iniguez, biopsy gastritis, R/O H. pylori". Received are three segments of pale soto soft tissue ranging in size from 0.4 to 0.5 cm in maximum dimensions. The specimen is submitted entirely in cassette B1. (CAA; 08/03/2019) QAC/QAC 08/03/2019 1914 Local . 02 [place] [address] PATHOLOGY RPT PROCEDURE Name: HIRAALEKEVAN RESTREPO Room #: REG CLDomi Lo#: [id number] Admission: 08/03/19 Date of : 50 Discharge: Report #: [id number] Path Case #: [id number] Pathologist provided ICD-10: K29.80, K31.9, K31.7 . 02 CPT . 819306, 373131, S34998 Specimen Comment: A courtesy copy of this report has been sent to [phone], [phone] Specimen Comment: [phone] Specimen Comment: Report sent to / DR VANCE Performed at: [address], [place] [id number] MD Leo Laboy MD Phone: [phone] Performed at: [address] [id number] MD Radha Gomez MD Phone: [phone]
--- NOTE | 2019-08-05 11:20 | P ---
[facility] [place] [address] PROCEDURE REPORT Name: NATE INIGUEZ Room #: REG [facility] Teresita#: [id number] Admission: 08/03/19 Attend Phys: Armando Ngo Discharge: Date of : 50 Report #: [id number] THIS REPORT FOR: cc: Wyatt Murphy MD, Eric K. MD McElhinney, Christian C. MD ~ CC: Armando Murphy MD DATE OF SERVICE: 08/03/2019 PROCEDURE PERFORMED: Upper endoscopy with biopsies. HISTORY OF PRESENT ILLNESS: The patient is a 69-year-old female for approximately 6 months with daily nausea, intermittent vomiting, hiccups. She has lost weight of approximately 25 pounds over this time. She has had a decreased appetite. She denies any abdominal pain. She does take Nexium on a daily basis. She has been on this for several years. She denies any dysphagia or odynophagia. She does report some mild heartburn symptoms at times. She has never had a colonoscopy. No family history of colon cancer. She denies any NSAID use. She is on Celebrex. DESCRIPTION OF PROCEDURE: The risks and benefits of the procedure were explained to the patient, those risks including but not limited to bleeding, perforation and the risk of sedation. She understood these risks and gave informed consent. Sedation was given using propofol per anesthesia. Next, using a standard Olympus upper endoscope, the scope was placed in the patient's mouth and advanced under direct vision through the esophagus, stomach and into the second portion of the duodenum. The larynx was normal in appearance. The esophagus was normal throughout. The GE junction was normal. In the stomach, there was a mild diffuse gastritis noted in the body and of the stomach. Biopsies were obtained. No evidence of ulcerations or erosions. The pylorus was normal and patent. There was a small amount of food residual noted in the duodenum. The duodenal bulb, first and second portion were otherwise normal. Biopsies were obtained to rule out the possibility of celiac sprue. The scope was then withdrawn and the procedure terminated. The patient tolerated the procedure well. IMPRESSION: 1. Gastritis. 2. Mild food residual in the duodenum. 3. Otherwise, normal upper endoscopy. RECOMMENDATIONS: 1. Await biopsy results. [address] [address] PROCEDURE REPORT Name: NATE INIGUEZ KAYE Room #: REG Domi Lo#: [id number] Admission: 08/03/19 Attend Phys: Armando Ngo Discharge: Date of : 50 Report #: [id number] 2. Continue daily PPI therapy. 3. We will proceed with a gastric emptying study. Thank you for allowing me to participate in her care. <ELECTRONICALLY SIGNED> By: Armando Wright MD 08/05/19 1120 1025 190 Armando Wright MD /juan
== END | disposition home or self-care (01) ==
LOC: GI 08:07
DX: R11.2 Nausea with vomiting, unspecified (principal); K29.80 Duodenitis without bleeding; K31.9 Disease of stomach and duodenum, unspecified; K31.7 Polyp of stomach and duodenum; K29.70 Gastritis, unspecified, without bleeding; R63.4 Abnormal weight loss; I10 Essential (primary) hypertension; K21.9 Gastro-esophageal reflux disease without esophagitis; M19.90 Unspecified osteoarthritis, unspecified site; Z98.890 Other specified postprocedural states; Z79.899 Other long term (current) drug therapy; Z96.652 Presence of left artificial knee joint; Z87.891 Personal history of nicotine dependence; Z88.8 Allergy status to other drugs, medicaments and biological substances

== ENCOUNTER → 2019-08-10 | Outpatient (CLI) | payer OTHER | LOC: NUC 08:47 | DX: R63.4 Abnormal weight loss (principal); R11.2 Nausea with vomiting, unspecified ==

== ENCOUNTER → 2021-04-23 | Outpatient (CLI) | payer OTHER ==
[~2021-04-23] VITALS: Ht 167.6 cm; Wt 93.9 kg
[~2021-04-23] MED LIST changes: +CELEBREX100 MG/1 C PO; +XTAMPZA ER18 MG PO
[2021-04-23 10:51] VITALS: BP 141/74
--- NOTE | 2021-04-23 11:00 | NUR ---
Pain Clinic Assessment: 1. History of Osteoarthritis: Left Lower Extremity Right Lower Extremity History of Rheumatoid Arthritis: Left Lower Extremity Right Lower Extremity Left Upper Extremity Right Upper Extremity 2. Height: 5 ft. 6 in. 167.6 cm. Weight: 207.0 lb. oz. 93.895 kg. Patient's BMI: 33.4 3. Vital Signs: BP: 141/74 Pulse: 83 Resp: 16 Temp: 02 Sat: 98 ECG Mon: 4. Pain Intensity: 8.5 5. Fall Risk: Dizziness: N Needs help standing or walking: N Fallen in the last 3 months: N Fall risk comments: 6. Patient on Blood Thinner: None 7. History of Hypertension: Y 8. Opioid Therapy greater than 6 weeks: Y Opiate Contract Signed: 9. Risk Assessment Tool Provided: low-0 10. Functional Assessment Tool: 40 11. Recreational Drug Use: Never Drug Type: Tobacco Use: Former Smoker Tobacco Type: Amount or Packs/day: How Many Years: Alcohol Use: No Frequency: Quant:
--- NOTE | 2021-04-23 14:13 | HPC ---
[facility] [place] [address] [place] [address] PAIN MANAGEMENT CONSULTATION Name: NATE INIGUEZ Room #: REG [facility]..#: [id number] Admission: 04/23/21 Attend Phys: Ion Cox DO Discharge: Date of : 50 Report #: [id number] THIS REPORT FOR: cc: FAM - No family physician/PCP FAM - No family physician/PCP Ion Cox DO ~ cc: Jd Maher MD DATE OF SERVICE: 04/23/2021 CHIEF COMPLAINT: Low back pain, bilateral lower extremity pain with paresthesias, left greater than right. HISTORY OF PRESENT ILLNESS: As you know, the patient is a 71-year-old female who was last seen in consultation on 01/25/2019, where she underwent a lumbar epidural injection under fluoroscopic guidance. She reports that, that injection provided improvement in symptoms of greater than 90% for almost an entire year. Unfortunately, her symptoms have reoccurred. She states that she had been less than active over the last year due to COVID-19. Her fears in regards to the virus led to delay of return to our clinic for care. She returns today having completed all her COVID injections, with a pain score of 8/10, requesting a lumbar epidural injection under fluoroscopic guidance. The patient describes the pain as more of a soreness, sharpness, aching, numbness and tingling exacerbated with standing and walking, improves with medications and previous lumbar epidural injections. She returns today in followup visit, denying any new injury or trauma that has led to symptom reoccurrence. She is requesting next in the series of lumbar epidural injections. ALLERGIES: ERYTHROMYCIN. CURRENT MEDICATIONS: Xtampza ER 18 mg every 8 hours, celecoxib 100 mg once a day, guaifenesin 600 mg 2 tabs per day, meclizine 25 mg t.i.d., vitamin D2 at 2000 units once a day, omeprazole 40 mg per day, amitriptyline 50 mg p.o. at bedtime, lisinopril/hydrochlorothiazide 20/12.5 mg once a day, metoprolol XL 25 mg once a day, MiraLax 17 grams per day. SOCIAL HISTORY: The patient denies tobacco, alcohol or IV or illicit drug use. She is retired, retired years ago, unaccompanied today. IMAGING: No new imaging available. PQRS: The patient has known arthritic changes of the cervical spine, lumbar spine, bilateral hips, and bilateral knees. No reported rheumatoid arthritis. She reports pain score of 8 to 8.5/10. She is not a fall risk, has not had a fall in last 3 months. She is not on blood thinners, but is treated for hypertension. She is on chronic opioids, has a low opioid addiction potential based on assessment tool. Pain impact is 40 of 70, moderate interference of [address] [address] PAIN MANAGEMENT CONSULTATION Name: NATE INIGUEZ Room #: REG [facility] Lo#: [id number] Admission: 04/23/21 Attend Phys: Ion Cox DO Discharge: Date of : 50 Report #: [id number] daily activities secondary to pain. PHYSICAL EXAMINATION: VITAL SIGNS: Blood pressure 141/74, pulse 83, respiratory rate 16 and unlabored. The patient 98% on room air. Height 5 feet 6 inches tall, weight 207 pounds, BMI calculated 33.4. GENERAL: Well-developed, well-nourished, well-hydrated 71-year-old female appearing stated age, pain is rated anywhere from 8 to 8.5/10. HEENT: Normocephalic, atraumatic. Pupils equal, round and responsive to light. Extraocular muscles are intact. She is wearing a mask in compliance with COVID-19 regulations. EXTREMITIES: Show no clubbing, no cyanosis and no appreciable edema. MUSCULOSKELETAL: Lower extremity strength appears symmetrical, 5/5. Seated straight leg raising negative. Supine straight leg raising is positive on the left. Marci's test is negative. Modified Gaenslen's positive for axial back pain. Ankle clonus negative. Babinski is negative. Gait appears mildly antalgic. It does appear that she is favoring left lower extremity. ASSESSMENT: 1. Symptomatic lumbar radiculopathy. 2. Central canal stenosis of lumbar spine. 3. Lumbosacral spondylosis with radiculopathy. 4. Lumbar degeneration. 5. Chronic intractable pain. PLAN: 1. The patient returns today in followup visit requesting to undergo lumbar epidural injection under fluoroscopic guidance. She reported excellent benefit with previous lumbar epidural injection performed in 12/2018. She has been lost to follow up visit since that time and states that she was doing fairly well until just recently. She made today's appointment to undergo lumbar epidural injection under fluoroscopic guidance. She has been advised risks and benefits of this procedure, states she understood and wished to proceed. 2. No medication changes made at today's visit. The patient will continue current medical therapy as prior prescribed. 3. We will see the patient back in followup visit on an as needed basis for the next in the series of lumbar epidural injections. We have placed the patient on a tentative timeframe of 1 month for possible next in the series of epidural injections. I have advised the patient that if she is feeling well and does not require this next injection, to delay. She is agreeable with this plan. PROCEDURE NOTE DESCRIPTION OF PROCEDURE: L5-S1 left paramedian epidural steroid injection under fluoroscopic guidance. [address] [address] PAIN MANAGEMENT CONSULTATION Name: NTAE INIGUEZ KAYE Room #: REG [facility].#: [id number] Admission: 04/23/21 Attend Phys: Ion Cox DO Discharge: Date of : 50 Report #: [id number] After obtaining written consent, the patient was taken back to fluoroscopy suite, placed in prone position with pillow under abdomen to decrease lumbar lordosis. Skin overlying lumbosacral area prepped and draped in aseptic fashion. L5-S1 vertebral interspace identified by AP fluoroscopy. Skin and subcutaneous tissue overlying target site injection anesthetized with 3 mL 1% lidocaine. A 20 gauge 3-1/2 inch Tuohy needle advanced under fluoroscopic guidance towards the epidural space using a left paramedian approach. Epidural space identified using loss of resistance to air technique. After negative aspiration for heme or cerebrospinal fluid, 1 mL of Omnipaque injected. Lumbar epidurogram was confirmed using both AP and lateral fluoroscopy. After negative aspiration for heme or cerebrospinal fluid, 5 mL of a solution containing 2 mL of 40 mg per mL, 80 mg total, triamcinolone along with 3 mL of lidocaine 1% injected slowly. Needle was retracted long-term flushed with 1 mL of 1% lidocaine and removed. Sterile bandage placed over injection site. No new motor deficits present in lower extremity following procedure. The patient tolerated the procedure well, carefully escorted to recovery room in stable condition. No apparent complications. After meeting discharge criteria, the patient discharged home. <ELECTRONICALLY SIGNED> By: Ion Cox DO 04/23/21 1413 1116 1244 Ion Cox DO /nt
== END | disposition home or self-care (01) ==
LOC: PAIN 10:30
PROVIDERS: ATTEND Anesthesiology Pain Medicine
DX: M51.16 Intervertebral disc disorders with radiculopathy, lumbar region (principal); M47.27 Other spondylosis with radiculopathy, lumbosacral region; M48.061 Spinal stenosis, lumbar region without neurogenic claudication; G89.29 Other chronic pain; I10 Essential (primary) hypertension; M19.90 Unspecified osteoarthritis, unspecified site; F17.210 Nicotine dependence, cigarettes, uncomplicated; Z98.890 Other specified postprocedural states; Z79.899 Other long term (current) drug therapy; Z88.8 Allergy status to other drugs, medicaments and biological substances